=== PATIENT | female | born 1995 | race Caucasian/White ===

== ENCOUNTER 2023-05-08 14:58 | Emergency (ER) | payer OTHER ==
[~2023-05-08] VITALS: Ht 162.6 cm; Wt 72.1 kg
[2023-05-08] MEDS ORDERED: IV NS 0.9% 1,000 ML BAG IV ONE (16:00)
[2023-05-08 16:28] VITALS: BP 146/80; TEMP 98.7; O2SAT 100
== END 2023-05-08 16:25 | disposition left against medical advice (07) ==
LOC: ER 15:10
DX: F15.10 Other stimulant abuse, uncomplicated (principal); R00.0 Tachycardia, unspecified; Z59.00 Homelessness unspecified
CPT/HCPCS: J7030